=== PATIENT | female | born 1980 | race Caucasian/White ===

== ENCOUNTER 2021-04-17 04:44 | Emergency (ER) | payer BC ==
[~2021-04-17] VITALS: Ht 154.9 cm; Wt 86.2 kg
[2021-04-17] MEDS ORDERED: ONDANSETRON HCL/PF 4 MG/2 ML VIAL IVP ONE (05:00)
[2021-04-17] MEDS ORDERED: IV NS 0.9% 1,000 ML BAG IV ONE (05:00)
[2021-04-17] MEDS ORDERED: ONDANSETRON HCL/PF 4 MG/2 ML VIAL ONE (05:03)
--- NOTE | 2021-04-17 05:05 | NUR ---
PT BIBS C/O VOMITTING FOR THE WHOLE DAY. DENIES ANY NAUSEA. PT IS ALERT AND ORIENTED X 4. AMBULATORY WITH NON LABORED BREATHING.
[2021-04-17] MEDS ORDERED: ONDA4TAB5 PO (05:09)
--- NOTE | 2021-04-17 05:10 | NUR ---
LINE ESTABLISHED @ [facility] 18G
--- NOTE | 2021-04-17 05:47 | NUR ---
Patient discharged to home in stable condition. Written and verbal after care instructions given. Patient verbalizes understanding of instruction. RX given
[2021-04-17 05:48] VITALS: BP 100/60
== END 2021-04-17 05:48 | disposition home or self-care (01) ==
LOC: ER 04:52
DX: R11.2 Nausea with vomiting, unspecified (principal); Z60.2 Problems related to living alone
CPT/HCPCS: 96361; 96374; 99283; J2405; J7030